=== PATIENT | male | born 1970 | race Caucasian/White ===

== ENCOUNTER 2018-11-29 09:13 | Emergency (ER) | payer SELFPAY ==
[~2018-11-29] VITALS: Ht 193 cm; Wt 76.3 kg
[2018-11-29] MEDS ORDERED: FAMOTIDINE 20 MG TABLET ONE (09:55)
[2018-11-29] MEDS ORDERED: DIPHENHYDRAMINE 25 MG CAPSULE ONE (09:56)
[2018-11-29] MEDS ORDERED: FAMOTIDINE 20 MG TABLET PO ONE (10:00)
[2018-11-29] MEDS ORDERED: DIPHENHYDRAMINE 25 MG CAPSULE PO ONE (10:00)
--- NOTE | 2018-11-29 10:05 | NUR ---
PT MEDICATED PER EMAR FOR RASH. PER PT, RASH ONLY NOTICED AFTER BEING TRIAGED. RASH WORSE TO BILATERAL ARMS EXTENDING TO CHEST AND NECK. PT WITH NO KNOWN ALLERGIES EXCEPT PCN. PT REPORTS OF INCREASED STRESS RECENTLY. PT ON MONITOR, BP CUFF PULSE OX. VSS, IMPROVED FROM TRIAGE.
--- NOTE | 2018-11-29 10:29 | NUR ---
CXR RESULTS BACK, RASH IMPROVED. PT FOR RECHECK.
[2018-11-29] MEDS ORDERED: CEFTRIAXONE 1,000 MG ONE (10:49)
[2018-11-29] MEDS ORDERED: LIDOCAINE-MPF 1%, 5ML ONE (10:49)
[2018-11-29] MEDS ORDERED: CEFTRIAXONE 1,000 MG IM ONE (11:00)
--- NOTE | 2018-11-29 11:12 | NUR ---
PT GIVEN DISCHARGE INSTRUCTS AND AMBULATES OUT TO DISCHARGE DESK.
[2018-11-29 11:23] VITALS: BP 104/65
== END 2018-11-29 11:25 | disposition home or self-care (01) ==
LOC: ED 09:52
DX: T78.40XA Allergy, unspecified, initial encounter (principal); J15.9 Unspecified bacterial pneumonia; X58.XXXA Exposure to other specified factors, initial encounter
CPT/HCPCS: 71046; 96372; 99284; J0696; J7512; Q0163